=== PATIENT | female | born 1960 | race Hispanic/Latino ===

== ENCOUNTER 2018-10-10 09:09 | Emergency (ER) | payer SELFPAY ==
[~2018-10-10] VITALS: Ht 157.5 cm; Wt 71.7 kg
[~2018-10-10 09:09] MED LIST: GLIMEPIRIDE2 MG PO; GLYBURIDE-METF1 EACH PO; MELATONIN 5 MG1 EAC1 PO; MELATONIN3 MG PO; TYLENOL PM EX-1 EACH PO
--- OUTSIDE RECORDS SUMMARY | 2018-10-10 09:15 | XMS REPORT | Encounter Summary ---
Author Organization Unknown Address [address] [place] [address] Phone [phone] Reason for Visit Screening - TB Instructions 1. Tuberculosis screening Tubersol 5 tub. unit/0.1 mL intradermal injection solution PPD (purified protein derivative), skin test Discussion Note: None recorded. Patient educational handouts: No information available. Plan of Care Reminders Provider Appointments None recorded. Lab PPD (Purified Protein Derivative), Skin Test 06/09/2018 [facility] Referral None recorded. Procedures None recorded. Surgeries None recorded. Imaging None recorded. Medications Name Start Date atorvastatin 20 mg tablet TK 1 T PO QD UTD ciprofloxacin 500 mg tablet TK 1 T PO BID glimepiride 2 mg tablet TK 1 T PO BID Januvia 100 mg tablet TK 1 T PO QD UTD Jardiance 25 mg tablet TK 1 T PO D lisinopril 2.5 mg tablet TK 1 T PO QD UTD meloxicam 15 mg tablet TK 1 T PO QD FOR 15 DAYS PRN tizanidine 4 mg tablet TK 1 T PO HS FOR 15 DAYS PRN Tubersol 5 tub. unit/0.1 mL intradermal injection solution Inject 0.1 mL by intradermal route. Medications Administered Name Date Tubersol 5 tub. unit/0.1 mL intradermal injection solution Inject 0.1 mL by intradermal route. [id number] Vitals None recorded. Lab Results None recorded. Allergies None recorded. Problems None recorded. Procedures None recorded. Vaccine List None recorded. Social History None recorded. Past Encounters 06/09/2018 Tuberculosis Screening [facility]: [address] [place] [address], Ph. History of Present Illness Screening Request - TB Reported By: Patient Screening Request: BCG No prior BCG vaccination. PPD No past history of postive TB skin test (PPD), No previous severe local reaction to TB skin test (PPD). OTHER No prior vaccines within last month Review of Systems Screening - TB Reported By: Patient Symptoms during past year > 2 weeks, NOT associated with specific illness?: unexplained or low grade fever No fever. night sweats No night sweats. unexplained weight loss > 5 lbs No unexplained weight loss. persistent cough No persistent cough. shortness of breath No shortness of breath. coughing up blood (hemoptysis) No coughing up blood (hemoptysis). unusual fatigue No unusual fatigue. loss of appetite No loss of appetite. swollen neck glands No swollen neck glands Physical Exam Screening Reported By: Patient General Appearance: General: well-developed, well-nourished, no acute distress
--- OUTSIDE RECORDS SUMMARY | 2018-10-10 09:15 | XMS REPORT | Continuity of Care Document ---
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 Role Phone [employer] Unavailable Unavailable Problems Problem Status Onset Date Classification Date Reported Comments Source Tuberculosis screening 06/09/2018 Diagnosis 06/09/2018 [facility] Medications Medication Details Route Status Patient Instructions Ordering Provider Order Date Source atorvastatin 20 MG Oral Tablet atorvastatin 20 mg tablet TK 1 T PO QD UTD Active [facility] Ciprofloxacin 500 MG Oral Tablet ciprofloxacin 500 mg tablet TK 1 T PO BID Active [facility] glimepiride 2 MG Oral Tablet glimepiride 2 mg tablet TK 1 T PO BID Active [facility] sitagliptin 100 MG Oral Tablet [Januvia] Januvia 100 mg tablet TK 1 T PO QD UTD Active [facility] empagliflozin 25 MG Oral Tablet [Jardiance] Jardiance 25 mg tablet TK 1 T PO D Active [facility] Lisinopril 2.5 MG Oral Tablet lisinopril 2.5 mg tablet TK 1 T PO QD UTD Active [facility] meloxicam 15 MG Oral Tablet meloxicam 15 mg tablet TK 1 T PO QD FOR 15 DAYS PRN Active [facility] tizanidine 4 MG Oral Tablet tizanidine 4 mg tablet TK 1 T PO HS FOR 15 DAYS PRN Active [facility] Purified Protein Derivative of Tuberculin 50 UNT/ML Injectable Solution [Tubersol] Tubersol 5 tub. unit/0.1 mL intradermal injection solution Inject 0.1 mL by intradermal route. Active [facility] Allergies, Adverse Reactions, Alerts No Known Medication Allergies Immunizations No Data Provided for This Section Results No Data Provided for This Section Pathology Reports No Data Provided for This Section Diagnostic Reports No Data Provided for This Section Consultation Notes No Data Provided for This Section Discharge Summaries No Data Provided for This Section History and Physicals No Data Provided for This Section Vital Signs No Data Provided for This Section Encounters Location Location Details Encounter Type Encounter Number Reason For Visit Attending Provider ADM Date DC Date Status Source [place] - [facility] - [id number] Judy Salterers, [facility]: [address] [facility], [place] [address], Ph. [id number] Judy Zamudio 06/09/2018 [facility] Procedures No Data Provided for This Section Assessment and Plan No Data Provided for This Section Plan of Care No Data Provided for This Section Social History No Data Provided for This Section Family History No Data Provided for This Section Advance Directives No Data Provided for This Section Functional Status No Data Provided for This Section
[2018-10-10 10:49] LABS: BASOPHILS % 0.7 % (0.0-1.0); EOSINOPHILS # (AUTO) 0.2 (0.0-0.4); EOSINOPHILS % 2.7 % (0.0-6.0); HEMATOCRIT 39.7 % (34.2-44.1); HEMOGLOBIN 13.4 g/dL (12.0-16.0); LYMPHOCYTES # (AUTO) 1.6 (1.0-3.2); LYMPHOCYTES % 29.1 % (18.0-39.1); MEAN CORPUSCULAR HEMOGLOBIN 29.8 pg (28-32); MEAN CORPUSCULAR HGB CONC 33.8 g/dL (31-35); MEAN CORPUSCULAR VOLUME 88.4 fL (81-99); MONOCYTES # (AUTO) 0.5 (0.2-0.8); MONOCYTES % 9.1 % (4.4-11.3); NEUTROPHILS # (AUTO) 3.3 (2.1-6.9); NEUTROPHILS % 58.2 % (38.7-80.0); PLATELET COUNT 301 x10e3/uL (140-360); RED BLOOD COUNT 4.49 x10e6/uL (3.6-5.1); RED CELL DISTRIBUTION WIDTH 12.5 % (11.7-14.4)
[2018-10-10 10:54] LABS: PREGNANCY TEST, URINE NEGATIVE (NEGATIVE)
[2018-10-10 11:04] LABS: ALANINE AMINOTRANSFERASE 21 IU/L (0-55); ALBUMIN 4.1 g/dL (3.5-5.0); ALBUMIN/GLOBULIN RATIO 1.1 (0.8-2.0); ALKALINE PHOSPHATASE 91 IU/L (40-150); ANION GAP 13.9 mmol/L (8-16); BLOOD UREA NITROGEN 10 mg/dL (7-26); BUN/CREATININE RATIO 14 (6-25); CALCIUM 9.7 mg/dL (8.4-10.2); CARBON DIOXIDE 28 mmol/L (22-29); CHLORIDE 98 mmol/L (98-107); CREATININE, SERUM 0.71 mg/dL (0.57-1.11); EST GLOMERULAR FILTRATION RATE > 60 ML/MIN (60-); GLUCOSE 160 mg/dL (74-118); POTASSIUM 3.9 mmol/L (3.5-5.1); SODIUM 136 mmol/L (136-145)
[2018-10-10 11:09] LABS: AMYLASE 26 U/L (25-125); LIPASE 21 U/L (8-78)
[2018-10-10 11:17] LABS: BILIRUBIN,URINE NEGATIVE (NEGATIVE); CLARITY,URINE CLEAR (CLEAR); COLOR,URINE YELLOW (YELLOW); KETONES,URINE TRACE (NEGATIVE); LEUKOCYTE ESTERASE ,URINE NEGATIVE (NEGATIVE); NITRITE,URINE NEGATIVE (NEGATIVE); PROTEIN,URINE DIPSTICK TRACE (NEGATIVE); URINE UROBILINOGEN 0.2 mg/dL (0.2 - 1)
[2018-10-10 11:36] LABS: EPITHELIAL CELLS,URINE FEW /LPF
[2018-10-10 11:37] LABS: BACTERIA,URINE FEW /HPF; MUCUS,URINE FEW (RARE); RBC,URINE 0-5 /HPF (0-5); WBC,URINE (MAN) 0-5 /HPF (0-5)
--- NOTE | 2018-10-10 12:09 | Diagnostic Imaging Report ---
PROCEDURE: CT ABDOMEN AND PELVIS WITHOUT CONTRAST TECHNIQUE: The abdomen and pelvis were scanned utilizing a multidetector helical scanner from the diaphragm to the lesser trochanter. No oral or intravenous contrast were administered per referring physician request, renal stone protocol. Coronal and sagittal multiplanar reformations were obtained. COMPARISON: None. INDICATIONS: RIGHT FLANK PAIN RADIATES TO RIGHT GROIN FINDINGS: ABSENCE OF INTRAVENOUS CONTRAST DECREASES SENSITIVITY FOR DETECTION OF FOCAL LESIONS AND VASCULAR PATHOLOGY. LOWER THORAX: Normal. HEPATOBILIARY: No focal hepatic lesion or intrahepatic biliary ductal dilatation, with the exception of a probable simple cyst in segment 2 measuring 1.5 cm, average internal attenuation -5-0 Hounsfield units. Gallbladder has been removed. SPLEEN: No splenomegaly. PANCREAS: No focal masses or ductal dilatation. ADRENALS: No adrenal nodules. KIDNEYS/URETERS: No hydronephrosis, stones, or solid mass lesions. PELVIC ORGANS/BLADDER: The urinary bladder is incompletely distended but otherwise unremarkable. Uterus is anteflexed and appears normal. No adnexal mass. PERITONEUM / RETROPERITONEUM: No free air or fluid. LYMPH NODES: No pelvic sidewall, retroperitoneal, or mesenteric lymphadenopathy. Nonspecific mildly prominent left inguinal and external iliac lymph nodes of normal morphology. VESSELS: Limited evaluation without intravenous contrast. The abdominal aorta is non-aneurysmal. GI TRACT: The large bowel is notable for scattered diverticula along the descending and sigmoid colon without wall thickening or mesocolic inflammation. The appendix is normal. Stomach is collapsed with prominence of the rugal folds. No small bowel dilatation to suggest obstruction. BONES AND SOFT TISSUES: No focal soft tissue abnormalities. No osseous destructive lesions. Mild degenerative disc changes of the lumbar spine. IMPRESSION: No acute intra-abdominal or pelvic CT abnormalities. No urolithiasis. Large bowel diverticulosis without findings of diverticulitis. Dictated by: Zan Austin M.D. on 10/10/2018 at 12:13 Electronically approved by: Zan Austin M.D. on 10/10/2018 at 12:13
[2018-10-10] MEDS ORDERED: TYLENOL WITH C1 EACH PO (12:38)
== END 2018-10-10 13:14 | disposition home or self-care (01) ==
LOC: ER 09:09
DX: R10.11 Right upper quadrant pain (principal); I10 Essential (primary) hypertension; E11.9 Type 2 diabetes mellitus without complications; E78.5 Hyperlipidemia, unspecified; Z87.19 Personal history of other diseases of the digestive system; Z86.73 Personal history of transient ischemic attack (TIA), and cerebral infarction without residual deficits
CPT/HCPCS: 36415; 74176; 80053; 81001; 81025; 82150; 83690; 85025; 99284

== ENCOUNTER 2024-11-29 03:33 | Emergency (ER) | payer OTHER ==
[~2024-11-29] VITALS: Ht 157.5 cm; Wt 71.7 kg
[2024-11-29 03:33] VITALS: PULSE 109; RESP 18; TEMP 98.3; O2SAT 96
[~2024-11-29 03:33] MED LIST changes: +TYLENOL WITH C1 EACH PO
[2024-11-29] MEDS ORDERED: ULTRAM 50MG50 MG PO (03:56)
[2024-11-29] MEDS ORDERED: AMOX TR-K CLV1 EAC2 PO (03:56)
== END 2024-11-29 04:16 | disposition home or self-care (01) ==
LOC: ER 03:54
DX: L02.214 Cutaneous abscess of groin (principal); E11.9 Type 2 diabetes mellitus without complications; E78.5 Hyperlipidemia, unspecified; Z86.73 Personal history of transient ischemic attack (TIA), and cerebral infarction without residual deficits; Z87.442 Personal history of urinary calculi; Z87.19 Personal history of other diseases of the digestive system
CPT/HCPCS: 99283